=== PATIENT | male | born 1950 | race Caucasian/White ===

== ENCOUNTER 2022-03-11 13:16 | Inpatient (IN) ==
--- NOTE | 2022-03-11 14:21 | Emergency Department Note ---
Impression & Plan Precordial chest pain, SOB (shortness of breath), Elevated troponin ED Provider Note NAME: HEIDI HEAD AGE: 72 SEX: M : 1950 ARRIVES VIA: Walk-In INFORMANT: [Patient] ED PROVIDER(S): [Theodore Montes De Oca MD] CHIEF COMPLAINT: Chest pain HISTORY OF PRESENT ILLNESS: The patient is a 72-year-old male who presents to the ER with complaints of 1 week of exertional chest pain. 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 He feels a bit short of breath and lately, he has been sweating. His last episode of discomfort lasted about 6 hours as he was working 6 hours. When he stops working, he feels better. In addition, in the last day or so he has noticed some shortness of breath at the top of his stairs. He is currently sitting on the stretcher without dyspnea and without chest pain. The patient does have hypertrophic cardiomyopathy, no diagnosed coronary disease. He has never had an MD. Because of his symptoms, because of the escalation of symptoms, he presents for evaluation. REVIEW OF SYSTEMS: See HPI for pertinent positives and negatives. A total of ten systems were reviewed and were otherwise negative. PMHx/PSHx: See Below SOCIAL HISTORY: See Below. PHYSICAL EXAM: GENERAL: Patient is in no acute distress. HEENT: No acute trauma, normocephalic atraumatic, mucous membranes moist, no nasal congestion, no scleral icterus. NECK: No stridor, no adenopathy, no meningismus, trachea is midline. LUNGS: Clear to auscultation bilaterally, no wheeze, no rhonchi, breath sounds equal. HEART: 2/6 systolic murmur, regular rate and rhythm. ABDOMEN: Soft, nontender, bowel sounds positive, no hernias, no peritonitis. EXTREMITIES: No cyanosis or edema, full range of motion of all the joints without pain or difficulty, no signs for acute trauma. NEUROLOGIC: Oriented x 3, no acute motor or sensory deficits, no focal weakness. SKIN: No rash, no jaundice, no diaphoresis. DIFFERENTIAL DIAGNOSIS: Cardiac ischemia, aortic dissection, pulmonary embolism, pneumothorax, pneumonia, pericarditis, myocarditis, esophageal rupture, GERD, cholecystitis, pancreatitis, musculoskeletal, as well as other pathologies. EMERGENCY DEPARTMENT COURSE/PROCEDURES: ECG: Indication was chest pain. The ECG shows a normal sinus rhythm with a rate of 74. There is some LVH present. There are subtle ST depression/T wave inversions in the anterior and lateral leads. There is no ST elevation. The QTc is 395. Compared to an ECG from 25 September 2019, the anterior lateral ST changes/T wave inversions are more pronounced. Continuous Cardiac Monitoring: An order was placed for continuous cardiac monitoring. The monitor shows a rate of 75 with normal sinus rhythm. MEDICAL DECISION MAKING: There is no leukocytosis or concerning anemia. There is a normal platelet count. No worrisome coagulopathy. No renal failure or significant electrolyte abnormality. Troponin was elevated at 809, consistent with potential cardiac injury or strain. ECG shows a sinus rhythm, no ST elevation, some nonspecific ST changes were seen. No evidence for pancreatitis. COVID testing returned negative. Chest film did not show CHF or pneumonia. On exam, the patient was without chest pain and without dyspnea, he was resting comfortably. The patient presents with chest discomfort that was exertional in nature. He does have an elevation to his troponin. I did speak with cardiology. Hospitali zation is warranted. I spoke with the patient about his findings, I spoke with case management, the on-call hospitalist was consulted. Past Med/Surg History Medical History Chronic ulcerative colitis Dyslipidemia Heart murmur History of chemotherapy 5FU topical ointment to the penis Hypertension Hypertrophic cardiomyopathy Penile cancer Sleep apnea Surgical History (Updated 08/12/21 @ 08:30 by Alea Ross RN) History of Achilles tendon repair (10/1995) Left Dr. Kiser History of biopsy (11/29/19) Urethra Dr. Shasta Fenton History of biopsy of temporal artery (10/15/10) Left Temporal Artery History of cataract surgery (01/2011) Bilateral History of colonoscopy (01/07/13) Dr. Rosalba Varela History of colonoscopy (08/17/17) Dr. Rosalba Varela History of colonoscopy (03/09/15) Dr. Rosalba Varela History of colonoscopy (08/21/19) Dr. Rosalba Varela History of colonoscopy (01/2002) Dr. Romeo History of colonoscopy (04/24/07) Dr. Romeo History of colonoscopy (06/24/10) Dr. Romeo History of hernia repair History of prostate biopsy (07/14/21) History of repair of rotator cuff (07/15/10) Right Dr. Kiser History of umbilical hernia repair (01/2008) Dr. Bush S/P arthroscopic surgery of left knee (2003) Family History (Updated 08/12/21 @ 08:33 by Alea Ross RN) Grandfather (Maternal) , Passed Age 72 Lung cancer Father , Passed Age 65 No problems noted. Mother , Passed Age 80 Uterine cancer Brother No problems noted. Brother No problems noted. Sister No problems noted. Daughter No problems noted. Daughter No problems noted. Daughter No problems noted. 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 [id number] How many Children do You have: 3 Feels Safe at Home: Yes Childhood Exposure to Second-Hand Smoke: No Diet Comment: is Vegan caffeine: Yes (1 cup of coffee per day) during the past year weight has: remained stable Dental Care, Regularly: Yes Assistive Devices: CPAP Allergies Allergies Allergy/AdvReac Type Severity Reaction Status Date / Time No Known Allergies Allergy Verified 03/11/22 15:10 Home Meds Home Medications Medication Instructions Recorded Confirmed losartan 50 mg-hydrochlorothiazide 1 tab PO DAILY 09/25/19 03/11/22 12.5 mg tablet (Hyzaar) mercaptopurine 50 mg tablet 50 mg PO DAILY 09/25/19 03/11/22 pravastatin 10 mg tablet 10 mg PO DAILY 09/25/19 03/11/22 apixaban 5 mg tablet (Eliquis) 5 mg PO BID 08/12/21 03/11/22 metoprolol succinate 100 mg 100 mg PO DAILY 08/12/21 03/11/22 tablet,extended release 24 hr ascorbic acid (vitamin C) 500 mg 500 mg PO DAILY 10/11/21 03/11/22 tablet aspirin 81 mg capsule 81 mg PO DAILY 10/11/21 03/11/22 cholecalciferol (vitamin D3) 50 50 mcg PO DAILY 10/11/21 03/11/22 mcg (2,000 unit) capsule mesalamine 800 mg tablet,delayed 800 mg PO TID 03/11/22 03/11/22 release Previous Rx's Medication Instructions Recorded tamsulosin 0.4 mg capsule 0.4 mg PO BIDWMEAL #60 cap 03/03/22 Results & Data (ED) Vital Signs Vital Signs - 24 hr 03/11/22 13:22 03/11/22 14:16 03/11/22 14:18 Temperature 36.8 C Temperature Source Temporal Artery Scan Pulse Rate 83 75 Pulse Rate [Apical] Pulse Rhythm Regular Respiratory Rate 18 Blood Pressure 100/64 Blood Pressure [Left Arm] Blood Pressure Mean 76 Blood Pressure Mean [Left Arm] Blood Pressure Position Sitting Pulse Oximetry 96 98 Oxygen Delivery Method Room Air Room Air Room Air Sepsis Recent Fever Within 48 Hours No Sepsis New/Unexplained Change in Mental Status No Sepsis Action Taken by Nursing No Action Required 03/11/22 15:05 Temperature Temperature Source Pulse Rate Pulse Rate [Apical] 61 Pulse Rhythm Respiratory Rate 19 Blood Pressure Blood Pressure [Left Arm] 106/70 Blood Pressure Mean Blood Pressure Mean [Left Arm] 82 Blood Pressure Position Pulse Oximetry 97 Oxygen Delivery Method Room Air Sepsis Recent Fever Within 48 Hours Sepsis New/Unexplained Change in Mental Status Sepsis Action Taken by Halfway Medications Current Medication List: was personally reviewed by me Laboratory Data Attestation: I reviewed the patient's lab results. Result diagrams: 03/11/22 14:32 03/11/22 14:32 Lab Results 03/11/22 03/11/22 03/11/22 Range/Units 14:32 14:32 14:32 WBC 7.59 (4.8-10.8) K/uL RBC 4.25 L (4.7-6.1) M/uL Hgb 15.2 (14.0-18.0) g/dL Hct 43.7 (42-52) % MCV 102.8 H (80-100) fL MCH 35.8 H (25-34) pg MCHC 34.8 (32-36) g/dL RDW Std Deviation 56.5 H (36.4-46.3) fL RDW Coeff of Anirudh 15.0 H (11.5-14.5) % Plt Count 175 (130-400) K/uL MPV 9.2 (7.4-10.4) fL Immature Gran % (Auto) 0.3 % Neut % (Auto) 80.2 % Lymph % (Auto) 9.9 % Harper % (Auto) 7.9 % Eos % (Auto) 1.6 % Baso % (Auto) 0.1 % Neut # (Auto) 6.09 (1.4-6.5) K/uL Lymph # (Auto) 0.75 L (1.2-3.4) K/uL Harper # (Auto) 0.60 H (0.11-0.59) K/uL Eos # (Auto) 0.12 (0-0.5) K/uL Baso # (Auto) 0.01 (0-0.2) K/uL Immature Gran # (Auto) 0.02 (0.00-0.02) K/uL PT 11.5 (9.0-12.0) Seconds INR 1.1 (0.9-1.1) APTT 35.3 H (21.0-31.0) Seconds PTT Ratio 1.3 Sodium 134 L (136-145) mmol/L Potassium 3.6 (3.5-5.1) mmol/L Chloride 103 (98-107) mmol/L Carbon Dioxide 24 (21-32) mmol/L Anion Gap 7 (3-11) BUN 21 (6-23) mg/dl Creatinine 1.23 (0.6-1.4) mg/dl Est Cr Clr Drug Dosing 60.8 ml/min Est GFR ( Amer) 67.1 ml/min Est GFR (Non-Af Amer) 57.9 ml/min BUN/Creatinine Ratio 17.1 (10-20) Glucose 94 (70-99(Fasting)) mg/dl Calcium 9.3 (8.5-10.1) mg/dl Magnesium 2.1 (1.7-2.4) mg/dl Total Bilirubin 0.9 (0.2-1.0) mg/dl AST 24 (13-39) U/L ALT 22 (7-52) U/L Alkaline Phosphatase 86 (34-104) U/L Troponin I High Sens 809.5 H* (0-20) pg/ml Total Protein 6.4 (6.0-8.3) gm/dl Albumin 4.1 (3.4-5.0) gm/dl Globulin 2.3 L (2.5-4.0) gm/dl Albumin/Globulin Ratio 1.8 (0.9-2) Lipase 30 (11-82) U/L SARS-CoV-2, RNA, NAAT (NEGATIVE) 03/11/22 Range/Units 15:00 WBC (4.8-10.8) K/uL RBC (4.7-6.1) M/uL Hgb (14.0-18.0) g/dL Hct (42-52) % MCV (80-100) fL MCH (25-34) pg MCHC (32-36) g/dL RDW Std Deviation (36.4-46.3) fL RDW Coeff of Anirudh (11.5-14.5) % Plt Count (130-400) K/uL MPV (7.4-10.4) fL Immature Gran % (Auto) % Neut % (Auto) % Lymph % (Auto) % Harper % (Auto) % Eos % (Auto) % Baso % (Auto) % Neut # (Auto) (1.4-6.5) K/uL Lymph # (Auto) (1.2-3.4) K/uL Harper # (Auto) (0.11-0.59) K/uL Eos # (Auto) (0-0.5) K/uL Baso # (Auto) (0-0.2) K/uL Immature Gran # (Auto) (0.00-0.02) K/uL PT (9.0-12.0) Seconds INR (0.9-1.1) APTT (21.0-31.0) Seconds PTT Ratio Sodium (136-145) mmol/L Potassium (3.5-5.1) mmol/L Chloride (98-107) mmol/L Carbon Dioxide (21-32) mmol/L Anion Gap (3-11) BUN (6-23) mg/dl Creatinine (0.6-1.4) mg/dl Est Cr Clr Drug Dosing ml/min Est GFR ( Amer) ml/min Est GFR (Non-Af Amer) ml/min BUN/Creatinine Ratio (10-20) Glucose (70-99(Fasting)) mg/dl Calcium (8.5-10.1) mg/dl Magnesium (1.7-2.4) mg/dl Total Bilirubin (0.2-1.0) mg/dl AST (13-39) U/L ALT (7-52) U/L Alkaline Phosphatase (34-104) U/L Troponin I High Sens (0-20) pg/ml Total Protein (6.0-8.3) gm/dl Albumin (3.4-5.0) gm/dl Globulin (2.5-4.0) gm/dl Albumin/Globulin Ratio (0.9-2) Lipase (11-82) U/L SARS-CoV-2, RNA, NAAT NEGATIVE (NEGATIVE) Imaging Data Radiologist's Impression: Chest X-Ray 03/11/22 14:16 XR chest 1V portable CLINICAL HISTORY: Atypical chest pain TECHNIQUE: Single frontal radiograph of the chest was obtained. Comparison: Comparison is made to chest one view 09/25/2019 FINDINGS: No lines and tubes are seen. The cardiomediastinal silhouette is normal. The lungs are clear. No evidence of pleural effusion or pneumothorax. IMPRESSION: No acute chest disease. ACT 112: Negative or not required by law. Electronically signed by: Suresh Parmar M.D. 03/11/2022 2:42 PM Discharge Plan Visit Data Chief Complaint: Cardiac Assessment Stated Complaint: TIGHTNESS IN CHEST ON EXCERTION, SOB ED Provider: Theodore Montes De Oca Discharge Problem: Precordial chest pain, SOB (shortness of breath), Elevated troponin Patient Disposition: Admitted As Inpatient Condition: Fair Forms Stand Alone Forms: My [facility] Prescriptions Prescriptions: No Action tamsulosin 0.4 mg capsule 0.4 mg PO BIDWMEAL Qty: 60 RF: 5 Eliquis 5 mg tablet 5 mg PO BID RF: 0 metoprolol succinate 100 mg tablet extended release 24 hr 100 mg PO DAILY RF: 0 aspirin 81 mg capsule 81 mg PO DAILY RF: 0 ascorbic acid (vitamin C) 500 mg tablet 500 mg PO DAILY RF: 0 cholecalciferol (vitamin D3) 50 mcg (2,000 unit) capsule 50 mcg PO DAILY RF: 0 pravastatin 10 mg tablet 10 mg PO DAILY RF: 0 mercaptopurine 50 mg tablet 50 mg PO DAILY RF: 0 losartan-hydrochlorothiazide [Hyzaar] 50-12.5 mg tablet 1 tab PO DAILY RF: 0 mesalamine 800 mg tablet,delayed release (DR/EC) 800 mg PO TID RF: 0 Referrals Referrals: Kojo Brown MD [Outside Practitioners] -
[2022-03-11 14:43] LABS: Basophils # (auto) 0.01 K/uL (0-0.2); Basophils % (auto) 0.1 %; Eosinophils # (auto) 0.12 K/uL (0-0.5); Eosinophils % (auto) 1.6 %; Hematocrit (blood only) 43.7 % (42-52); Hemoglobin 15.2 g/dL (14.0-18.0); Immature Granulocytes # (auto) 0.02 K/uL (0.00-0.02); Immature Granulocytes % (auto) 0.3 %; Lymphocytes # (auto) 0.75 K/uL (1.2-3.4); Lymphocytes % (auto) 9.9 %; Mean Corpuscular Hemoglobin 35.8 pg (25-34); Mean Corpuscular Hgb Conc 34.8 g/dL (32-36); Mean Corpuscular Volume 102.8 fL (80-100); Mean Platelet Volume 9.2 fL (7.4-10.4); Monocytes % (auto) 7.9 %; Neutrophils # (auto) 6.09 K/uL (1.4-6.5); Neutrophils % (auto) 80.2 %; Platelet Count 175 K/uL (130-400); RDW Standard Deviation 56.5 fL (36.4-46.3); Red Blood Count 4.25 M/uL (4.7-6.1); White Blood Count 7.59 K/uL (4.8-10.8)
--- NOTE | 2022-03-11 14:44 | XRay Report ---
XR chest 1V portable CLINICAL HISTORY: Atypical chest pain TECHNIQUE: Single frontal radiograph of the chest was obtained. Comparison: Comparison is made to chest one view 09/25/2019 FINDINGS: No lines and tubes are seen. The cardiomediastinal silhouette is normal. The lungs are clear. No evid ence of pleural effusion or pneumothorax. IMPRESSION: No acute chest disease. ACT 112: Negative or not required by law. Electronically signed by: Suresh Parmar M.D. 03/11/2022 2:42 PM
[2022-03-11 14:53] LABS: INR 1.1 (0.9-1.1); Partial Thromboplastin Ratio 1.3; Partial Thromboplastin Time 35.3 Seconds (21.0-31.0); Prothrombin Time 11.5 Seconds (9.0-12.0)
[2022-03-11 15:05] LABS: Albumin Globulin Ratio 1.8 (0.9-2); Albumin Level 4.1 gm/dl (3.4-5.0); BUN Creatinine Ratio 17.1 (10-20); Bilirubin,Total 0.9 mg/dl (0.2-1.0); Calcium 9.3 mg/dl (8.5-10.1); Creatinine Clr Calc Pharmacy 60.8 ml/min; Est GFR (African American) 67.1 ml/min; Est GFR (Non-African American) 57.9 ml/min; Globulin 2.3 gm/dl (2.5-4.0); Magnesium 2.1 mg/dl (1.7-2.4); Potassium 3.6 mmol/L (3.5-5.1); Total Protein 6.4 gm/dl (6.0-8.3)
[2022-03-11 15:36] LABS: Troponin I High Sensitivity 809.5 pg/ml (0-20)
--- NOTE | 2022-03-11 16:28 | History & Physical Report ---
Date of Service March 11, 2022 Assessment & Plan (1) Precordial chest pain: Plan: Exertional chest discomfort, relieved by rest - worsening over the past 1-2 weeks. History of HOCM with latent inducible LVOT obstruction, paroxysmal atrial fibrillation on chronic AC. Denies prior hx of CAD. - Admit to PCU - Serial troponin, repeat EKG in AM - Check ECHO - Consult cardiology - will make pt NPO at midnight in case procedure needed tomorrow - Spoke with Dr. Del Rosario - will hold Eliquis and start heparin gtt, standard dose, no bolus (2) Elevated troponin: Plan: See plan for #1 (3) Hypertrophic cardiomyopathy: (4) Paroxysmal atrial fibrillation: (5) Sleep apnea: Plan: Continue CPAP (6) Hypertension: (7) Chronic anticoagulation: Plan: Continue other home medications as appropriate Pt seen and reviewed with collaborating physician, Dr. Walls. Plan of care discussed and as outlined above. Code status: Full code DVT Prophylaxis: on a heparin gtt Evan Ruiz PA-C History of Present Illness Chief Complaint: chest discomfort Primary Care Provider: Edson Sheldon DO This is a 72 y/o male with a PMH of HOCM with latent inducible LVOT obstruction, paroxysmal atrial fibrillation on chronic anticoagulation, HTN, hyperlipidemia, UC, sleep apnea on CPAP, prior squamous cell carcinoma of the penis, and recent prostate cancer s/p XRT who was referred to the ED today by his PCP due to increasing episodes of chest discomfort with exertion. 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 Starting last week, pt developed chest tightness with this exertion that resolved with rest. This week, the pt has noticed tightness and discomfort of increased intensity in the substernal area with associated racing heart. Yesterday's episode had associated SOB and mild diaphoresis and lasted around six hours so he contacted his professor of mathematics today and was referred to the ED for additional evaluation. He reports that the episode today lasted around three hours but he is currently pain-free. This week he has also noticed POND with climbing stairs, which is new. Yesterday, he had some posterior neck discomfort associated with the episode. In the ED, his troponin was elevated and his EKG appeared changed from prior though no areas of ST segment elevation upon initial presentation. The ED provider spoke with cardiology who recommended pt be admitted for further evaluation. Allergies Allergy/AdvReac Type Severity Reaction Status Date / Time No Known Allergies Allergy Verified 03/11/22 15:10 Home Medications Medication Instructions Recorded Confirmed Type losartan 50 mg-hydrochlorothiazide 1 tab PO DAILY 09/25/19 03/11/22 History 12.5 mg tablet (Hyzaar) mercaptopurine 50 mg tablet 50 mg PO DAILY 09/25/19 03/11/22 History pravastatin 10 mg tablet 10 mg PO DAILY 09/25/19 03/11/22 History apixaban 5 mg tablet (Eliquis) 5 mg PO BID 08/12/21 03/11/22 History metoprolol succinate 100 mg 100 mg PO DAILY 08/12/21 03/11/22 History tablet,extended release 24 hr ascorbic acid (vitamin C) 500 mg 500 mg PO DAILY 10/11/21 03/11/22 History tablet aspirin 81 mg capsule 81 mg PO DAILY 10/11/21 03/11/22 History cholecalciferol (vitamin D3) 50 50 mcg PO DAILY 10/11/21 03/11/22 History mcg (2,000 unit) capsule tamsulosin 0.4 mg capsule 0.4 mg PO BIDWMEAL #60 cap 03/03/22 03/11/22 Rx mesalamine 800 mg tablet,delayed 800 mg PO TID 03/11/22 03/11/22 History release verapamil 120 mg tablet,extended 60 mg PO DAILY 03/11/22 03/11/22 History release Past Med/Surg History Medical History Chronic ulcerative colitis Dyslipidemia Heart murmur History of chemotherapy 5FU topical ointment to the penis Hypertension Hypertrophic cardiomyopathy Paroxysmal atrial fibrillation Penile cancer Prostate cancer Sleep apnea Surgical History History of Achilles tendon repair (10/1995) Left Dr. Kiser History of biopsy (11/29/19) Urethra Dr. Shasta Fenton History of biopsy of temporal artery (10/15/10) Left Temporal Artery History of cataract surgery (01/2011) Bilateral History of colonoscopy (01/07/13) Dr. Rosalba Varela History of colonoscopy (08/17/17) Dr. Rosalba Varela History of colonoscopy (03/09/15) Dr. Rosalba Varela History of colonoscopy (08/21/19) Dr. Rosalba Varela History of colonoscopy (01/2002) Dr. Romeo History of colonoscopy (04/24/07) Dr. Romeo History of colonoscopy (06/24/10) Dr. Romeo History of hernia repair History of prostate biopsy (07/14/21) History of repair of rotator cuff (07/15/10) Right Dr. Kiser History of umbilical hernia repair (01/2008) Dr. Bush S/P arthroscopic surgery of left knee (2003) Family History Grandfather (Maternal) , Passed Age 72 Lung cancer Father , Passed Age 65 No problems noted. Mother , Passed Age 80 Uterine cancer Brother No problems noted. Brother No problems noted. Sister No problems noted. Daughter No problems noted. Daughter No problems noted. Daughter No problems noted. 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 [employer] How many Children do You have: 3 Other Information That Helps Us Care for You: No Feels Safe at Home: Yes Safety Concerns: Feels Safe At This Time Childhood Exposure to Second-Hand Smoke: No Diet Comment: is Vegan caffeine: Yes (1 cup of coffee per day) during the past year weight has: remained stable Dental Care, Regularly: Yes Assistive Devices: CPAP Assistive Devices Comment: home CPAP Review of Systems Review of Systems: All systems reviewed & are unremarkable except as noted in HPI & below Constitutional: + fatigue; no fever and no chills Eyes: no diplopia Ear, Nose, Mouth, Throat: no nasal congestion, no nasal discharge and no sore throat Respiratory: no cough, no chest congestion and no wheezing Cardiovascular: as per Subjective / HPI, + dyspnea on exertion and + lightheadedness (occasional mild); no syncope and no edema Gastrointestinal: no abdominal pain, no heartburn, no nausea, no vomiting and no diarrhea/loose stools Genitourinary: + urinary frequency (since XRT) and + nocturia (baseline 3x/night); no dysuria or no hematuria Musculoskeletal: no back pain and no joint pain Integumentary: no yellowing of the skin Neurologic: no seizure-like activity, no syncope and no headache(s) Psychiatric: no depression and no anxiety Physical Exam Constitutional: well developed and well nourished; no acute distress Eyes: + anicteric sclerae Neck: trachea midline Respiratory: no respiratory distress and no labored breathing Auscultation: lungs clear to auscultation bilaterally; no rales, no rhonchi and no wheezes Cardiovascular: Rate/Rhythm: regular rate and regular rhythm Vessels: posterior tibial pulses present and radial pulses present; no carotid bruit Extremities: no edema no chest wall tenderness Gastrointestinal (Abdomen): Inspection/Auscultation: normal bowel sounds; abdomen not distended Percussion/Palpation: abdomen soft; abdomen nontender Musculoskeletal: Head/Neck/Chest: normocephalic, head atraumatic and neck supple Skin: no jaundice Neurologic: moves all extremities; no focal motor deficits and not confused Psychiatric: A+Ox3, euthymic affect Results & Data Results & Data ([facility]) Vital Signs (Past 12 Hours) Vital Signs Temp Pulse Pulse Resp BP BP Pulse Ox 03/11/22 15:05 61 19 106/70 97 03/11/22 14:18 75 98 03/11/22 13:22 36.8 C 83 18 100/64 96 Laboratory Results Laboratory Results - last 24 hr 03/11/22 03/11/22 03/11/22 14:32 14:32 14:32 WBC 7.59 RBC 4.25 L Hgb 15.2 Hct 43.7 MCV 102.8 H MCH 35.8 H MCHC 34.8 RDW Std Deviation 56.5 H RDW Coeff of Anirudh 15.0 H Plt Count 175 MPV 9.2 Immature Gran % (Auto) 0.3 Neut % (Auto) 80.2 Lymph % (Auto) 9.9 [place] % (Auto) 7.9 Eos % (Auto) 1.6 Baso % (Auto) 0.1 Neut # (Auto) 6.09 Lymph # (Auto) 0.75 L [place] # (Auto) 0.60 H Eos # (Auto) 0.12 Baso # (Auto) 0.01 Immature Gran # (Auto) 0.02 PT 11.5 INR 1.1 APTT 35.3 H PTT Ratio 1.3 Sodium 134 L Potassium 3.6 Chloride 103 Carbon Dioxide 24 Anion Gap 7 BUN 21 Creatinine 1.23 Est Cr Clr Drug Dosing 60.8 Est GFR ( Amer) 67.1 Est GFR (Non-Af Amer) 57.9 BUN/Creatinine Ratio 17.1 Glucose 94 Calcium 9.3 Magnesium 2.1 Total Bilirubin 0.9 AST 24 ALT 22 Alkaline Phosphatase 86 Troponin I High Sens 809.5 H* Total Protein 6.4 Albumin 4.1 Globulin 2.3 L Albumin/Globulin Ratio 1.8 Lipase 30 SARS-CoV-2, RNA, NAAT 03/11/22 15:00 WBC RBC Hgb Hct MCV MCH MCHC RDW Std Deviation RDW Coeff of Anirudh Plt Count MPV Immature Gran % (Auto) Neut % (Auto) Lymph % (Auto) [place] % (Auto) Eos % (Auto) Baso % (Auto) Neut # (Auto) Lymph # (Auto) [place] # (Auto) Eos # (Auto) Baso # (Auto) Immature Gran # (Auto) PT INR APTT PTT Ratio Sodium Potassium Chloride Carbon Dioxide Anion Gap BUN Creatinine Est Cr Clr Drug Dosing Est GFR ( Amer) Est GFR (Non-Af Amer) BUN/Creatinine Ratio Glucose Calcium Magnesium Total Bilirubin AST ALT Alkaline Phosphatase Troponin I High Sens Total Protein Albumin Globulin Albumin/Globulin Ratio Lipase SARS-CoV-2, RNA, NAAT NEGATIVE Diagnostic Findings Chest X-ray 03/11/22 - IMPRESSION: No acute chest disease. Medications Administered None in ED Supervising Physician Co-Signing Physician Notes Patient is a 72-year-old male with history of paroxysmal A. fib on chronic anticoagulation with Eliquis, HOCM, hyperlipidemia, hypertension, sleep apnea and other medical problems presents with history of episodic chest pain on exertion which has been gradually worsening since 2 weeks duration. Patient describes chest pain as tightness which is associated with diaphoresis, palpitations and shortness of breath. Symptoms relieved with rest. Please review HPI for complete details of presentation. Blood work showed hemoglobin 15.2, MCV 102, platelets 175K, sodium 134, troponin 809. Chest x-ray showed no acute disease EKG showed normal sinus rhythm, nonspecific T wave changes in anterior, lateral and inferior leads. On exam patient is obese, no apparent distress, normocephalic atraumatic, EOMI, normal breath sounds, clear to auscultation, S1-S2,? Murmur, no pedal edema, abdomen soft, nontender, normal bowel sounds, alert, awake, oriented, grossly no focal deficits. Patient is admitted for management of Chest Pain R/O ACS. Likely NSTEMI. Started on IV heparin. Discussed with professor of mathematics on-call. Hold Eliquis. Continue aspirin, statin, metoprolol. Check lipid panel, A1c, resting echo. We will repeat EKG in the morning. N.p.o. after midnight for possible cardiac catheterization. I personally reviewed the record. Patient is interviewed and examined at bedside. Patient's care is coordinated with Vickie Ruiz PA-C. Please refer to the documentation above for details of patient's presentation and for discussion of other issues.
[2022-03-11] MEDS ORDERED: Heparin IV Adult Wt-Based Standard *NO* Bolus Protocol ONE (17:45)
[2022-03-11] MEDS: HEPARIN SODIUM/DEXTROSE 25,000 UNITS/500 ML BAG IV SCH (18:05)
[2022-03-11] MEDS ORDERED: NITROGLYCERIN SL 0.4 MG/TAB TAB SL PRN (19:17)
[2022-03-11] MEDS ORDERED: ACETAMINOPHEN 325 MG TAB PO PRN (19:17)
[2022-03-11] MEDS: TAMSULOSIN HCL 0.4 MG CAP PO SCH (20:30)
[2022-03-11] MEDS: MESALAMINE 800 MG TABCR PO SCH (22:13)
--- NOTE | 2022-03-11 22:15 | Electrocardiogram Report ---
Test Reason : Blood Pressure : / mmHG Vent. Rate : 074 BPM Atrial Rate : 074 BPM P-R Int : 194 ms QRS Dur : 080 ms QT Int : 356 ms P-R-T Axes : 049 002 -20 degrees QTc Int : 395 ms Normal sinus rhythm Possible Left atrial enlargement Left ventricular hypertrophy with repolarization abnormality Abnormal ECG When compared with ECG of 25-SEP-2019 18:44, Non-specific change in ST segment in Anterior leads Nonspecific T wave abnormality now evident in Inferior leads Nonspecific T wave abnormality now evident in Anterior leads Nonspecific T wave abnormality, improved in Lateral leads Confirmed by Jamie Dunn ([id number]) on 03/11/2022 10:15:02 PM Referred By: REFERRED SELF Confirmed By:Jamie Dunn
[2022-03-12 00:58] LABS: Partial Thromboplastin Ratio 2.9
[2022-03-12 01:03] LABS: Partial Thromboplastin Time 80.9 Seconds (21.0-31.0)
[2022-03-12 06:02] LABS: Hematocrit (blood only) 42.3 % (42-52); Hemoglobin 14.7 g/dL (14.0-18.0); Mean Corpuscular Hemoglobin 35.3 pg (25-34); Mean Corpuscular Hgb Conc 34.8 g/dL (32-36); Mean Corpuscular Volume 101.7 fL (80-100); Mean Platelet Volume 9.3 fL (7.4-10.4); Platelet Count 140 K/uL (130-400); RDW Coefficient of Variation 15.1 % (11.5-14.5); RDW Standard Deviation 55.2 fL (36.4-46.3); Red Blood Count 4.16 M/uL (4.7-6.1); White Blood Count 4.63 K/uL (4.8-10.8)
[2022-03-12 07:22] LABS: BUN Creatinine Ratio 18.1 (10-20); Calcium 8.7 mg/dl (8.5-10.1); Est GFR (African American) 81.2 ml/min; Est GFR (Non-African American) 70.1 ml/min; Potassium 3.6 mmol/L (3.5-5.1); Troponin I High Sensitivity 1126.4 pg/ml (0-20)
[2022-03-12 07:58] LABS: Partial Thromboplastin Ratio 3.5
[2022-03-12 08:02] LABS: Partial Thromboplastin Time 95.8 Seconds (21.0-31.0)
[2022-03-12] MEDS: MERCAPTOPURINE 50 MG TAB PO SCH (08:06)
[2022-03-12] MEDS: MESALAMINE 800 MG TABCR PO SCH ×3 (08:07→20:26)
[2022-03-12] MEDS: TAMSULOSIN HCL 0.4 MG CAP PO SCH ×2 (08:07→17:18)
[2022-03-12] MEDS: VERAPAMIL HCL 120 MG TABCR PO SCH (08:08)
[2022-03-12] MEDS: PRAVASTATIN SOD 10 MG TAB PO SCH (08:08)
[2022-03-12] MEDS: ASPIRIN 81 MG ECTAB PO SCH (08:08)
[2022-03-12] MEDS: LOSARTAN/HCTZ 50/12.5MG TAB PO SCH (08:08)
[2022-03-12] MEDS: METOPROLOL SUCC 50MG EXT REL TAB PO SCH (08:08)
[2022-03-12 09:41] LABS: Estimated Average Glucose 114 mg/dl; Hemoglobin A1C 5.6 % (4.5-5.6)
[2022-03-12] MEDS: HEPARIN SODIUM/DEXTROSE 25,000 UNITS/500 ML BAG IV SCH (12:50)
--- NOTE | 2022-03-12 14:15 | Cardiology Consultation ---
Date of Consultation March 12, 2022 Assessment & Plan (1) Crescendo angina: (2) Elevated troponin: (3) Hypertrophic cardiomyopathy: (4) Hypertension: (5) Sleep apnea: (6) Paroxysmal atrial fibrillation: Patient is a 72-year-old male with known hypertrophic cardiomyopathy but no prior history of ischemic heart disease who presents with signs and symptoms of crescendo angina/non-ST segment elevation myocardial infarction. Hemodynamically stable since admission and no current symptoms. Echocardiogram reflective of apical wall motion abnormality consistent with EKG 5 Recommendations: Continue anticoagulation with IV heparin, holding apixaban Continue metoprolol and verapamil Schedule diagnostic coronary angiography Monday unless patient becomes unstable History of Present Illness Attending Physician: Jacob Guadalupe MD History of Present Illness Patient is a 72-year-old male ongoing cardiac issues which include 1.Hypertrophic cardiomyopathy 2.Hypertension. 3.Ulcerative colitis. 4.Central sleep apnea. 5.Paroxysmal atrial fibrillation on chronic anticoagulation Patient presents this admission with signs and symptoms of crescendo angina greater than 1 weeks duration. He has noted exertional chest pressure with associated shortness of breath and intermittent diaphoresis at increasingly more frequent and lower levels of exertion over the past week. Ultimately presented in the emergency room with troponins of been elevated. He has been asymptomatic since hospital admission currently appropriately anticoagulated with IV heparin, Eliquis on hold No arrhythmias on telemetry. No rest symptoms per patient no fevers chills or unexplained infections. No current bleeding issues. No acute weight loss or gain. Has been taking medications as prescribed Allergies Allergy/AdvReac Type Severity Reaction Status Date / Time No Known Allergies Allergy Verified 03/11/22 15:10 Home Medications Medication Instructions Recorded Confirmed Type losartan 50 mg-hydrochlorothiazide 1 tab PO DAILY 09/25/19 03/11/22 History 12.5 mg tablet (Hyzaar) mercaptopurine 50 mg tablet 50 mg PO DAILY 09/25/19 03/11/22 History pravastatin 10 mg tablet 10 mg PO DAILY 09/25/19 03/11/22 History apixaban 5 mg tablet (Eliquis) 5 mg PO BID 08/12/21 03/11/22 History metoprolol succinate 100 mg 100 mg PO DAILY 08/12/21 03/11/22 History tablet,extended release 24 hr ascorbic acid (vitamin C) 500 mg 500 mg PO DAILY 10/11/21 03/11/22 History tablet aspirin 81 mg capsule 81 mg PO DAILY 10/11/21 03/11/22 History cholecalciferol (vitamin D3) 50 50 mcg PO DAILY 10/11/21 03/11/22 History mcg (2,000 unit) capsule tamsulosin 0.4 mg capsule 0.4 mg PO BIDWMEAL #60 cap 03/03/22 03/11/22 Rx mesalamine 800 mg tablet,delayed 800 mg PO TID 03/11/22 03/11/22 History release verapamil 120 mg tablet,extended 60 mg PO DAILY 03/11/22 03/11/22 History release Patient History Medical History Chronic ulcerative colitis Dyslipidemia Heart murmur History of chemotherapy 5FU topical ointment to the penis Hypertension Hypertrophic cardiomyopathy Paroxysmal atrial fibrillation Penile cancer Prostate cancer Sleep apnea Surgical History History of Achilles tendon repair (10/1995) Left Dr. Kiser History of biopsy (11/29/19) Urethra Dr. Shasta Fenton History of biopsy of temporal artery (10/15/10) Left Temporal Artery History of cataract surgery (01/2011) Bilateral History of colonoscopy (01/07/13) Dr. Rosalba Varela History of colonoscopy (08/17/17) Dr. Rosalba Varela History of colonoscopy (03/09/15) Dr. Rosalba Varela History of colonoscopy (08/21/19) Dr. Rosalba Varela History of colonoscopy (01/2002) Dr. Romeo History of colonoscopy (04/24/07) Dr. Romeo History of colonoscopy (06/24/10) Dr. Romeo History of hernia repair History of prostate biopsy (07/14/21) History of repair of rotator cuff (07/15/10) Right Dr. Kiser History of umbilical hernia repair (01/2008) Dr. Bush S/P arthroscopic surgery of left knee (2003) Family History Grandfather (Maternal) , Passed Age 72 Lung cancer Father , Passed Age 65 No problems noted. Mother , Passed Age 80 Uterine cancer Brother No problems noted. Brother No problems noted. Sister No problems noted. Daughter No problems noted. Daughter No problems noted. Daughter No problems noted. 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 [employer] How many Children do You have: 3 Other Information That Helps Us Care for You: No Feels Safe at Home: Yes Safety Concerns: Feels Safe At This Time Childhood Exposure to Second-Hand Smoke: No Diet Comment: is Vegan caffeine: Yes (1 cup of coffee per day) during the past year weight has: remained stable Dental Care, Regularly: Yes Assistive Devices: CPAP Assistive Devices Comment: home CPAP Review of Systems Review of Systems: All systems reviewed & are unremarkable except as noted in HPI & below Physical Exam Constitutional: WD/WN, vitals as above Eyes: PERRL, conjunctivae normal, anicteric sclerae ENMT: external ear and nose normal, oropharynx normal Neck: trachea midline, no thyromegaly Respiratory: normal respiratory effort, lungs clear to auscultation Cardiovascular: Rate/Rhythm: regular rate and regular rhythm Heart Sounds: normal S1, normal S2 and + murmur (Grade 1/6 systolic murmur); no gallop Palpation: normal PMI Vessels: normal carotid upstroke and radial pulses present; no JVD and no carotid bruit Extremities: no edema Gastrointestinal (Abdomen): normal bowel sounds, soft, nontender, no hepatosplenomegaly Musculoskeletal: no cyanosis or clubbing, extremities motor strength 5/5 Skin: no rashes, warm and dry Neurologic: PERRL, EOMI, accommodation nl, no face palsy, no dysarthria Psychiatric: A+Ox3, euthymic affect Results & Data ([facility]) Vital Signs (Past 12 Hours) Vital Signs Temp Pulse Pulse Pulse Pulse Resp BP 03/12/22 12:00 36.6 C 58 L 18 125/70 03/12/22 08:00 65 03/12/22 07:35 36.7 C 64 20 132/80 03/12/22 02:54 36.5 C 82 16 130/76 Pulse Ox 03/12/22 12:00 97 03/12/22 08:00 03/12/22 07:35 97 03/12/22 02:54 95 Laboratory Results Laboratory Results - last 24 hr 03/11/22 03/11/22 03/11/22 14:32 14:32 14:32 WBC 7.59 RBC 4.25 L Hgb 15.2 Hct 43.7 MCV 102.8 H MCH 35.8 H MCHC 34.8 RDW Std Deviation 56.5 H RDW Coeff of Anirudh 15.0 H Plt Count 175 MPV 9.2 Immature Gran % (Auto) 0.3 Neut % (Auto) 80.2 Lymph % (Auto) 9.9 [place] % (Auto) 7.9 Eos % (Auto) 1.6 Baso % (Auto) 0.1 Neut # (Auto) 6.09 Lymph # (Auto) 0.75 L [place] # (Auto) 0.60 H Eos # (Auto) 0.12 Baso # (Auto) 0.01 Immature Gran # (Auto) 0.02 PT 11.5 INR 1.1 APTT 35.3 H PTT Ratio 1.3 Sodium 134 L Potassium 3.6 Chloride 103 Carbon Dioxide 24 Anion Gap 7 BUN 21 Creatinine 1.23 Est Cr Clr Drug Dosing 60.8 Est GFR ( Amer) 67.1 Est GFR (Non-Af Amer) 57.9 BUN/Creatinine Ratio 17.1 Glucose 94 Estimat Average Glucose Hemoglobin A1c Calcium 9.3 Magnesium 2.1 Total Bilirubin 0.9 AST 24 ALT 22 Alkaline Phosphatase 86 Troponin I High Sens 809.5 H* Total Protein 6.4 Albumin 4.1 Globulin 2.3 L Albumin/Globulin Ratio 1.8 Triglycerides Cholesterol LDL Cholesterol, Calc VLDL Cholesterol, Calc HDL Cholesterol Cholesterol/HDL Ratio Lipase 30 SARS-CoV-2, RNA, NAAT 03/11/22 03/11/22 03/12/22 15:00 22:46 00:19 WBC RBC Hgb Hct MCV MCH MCHC RDW Std Deviation RDW Coeff of Anirudh Plt Count MPV Immature Gran % (Auto) Neut % (Auto) Lymph % (Auto) [place] % (Auto) Eos % (Auto) Baso % (Auto) Neut # (Auto) Lymph # (Auto) [place] # (Auto) Eos # (Auto) Baso # (Auto) Immature Gran # (Auto) PT INR APTT 80.9 H* PTT Ratio 2.9 Sodium Potassium Chloride Carbon Dioxide Anion Gap BUN Creatinine Est Cr Clr Drug Dosing Est GFR ( Amer) Est GFR (Non-Af Amer) BUN/Creatinine Ratio Glucose Estimat Average Glucose Hemoglobin A1c Calcium Magnesium Total Bilirubin AST ALT Alkaline Phosphatase Troponin I High Sens 1497.3 H* D Total Protein Albumin Globulin Albumin/Globulin Ratio Triglycerides Cholesterol LDL Cholesterol, Calc VLDL Cholesterol, Calc HDL Cholesterol Cholesterol/HDL Ratio Lipase SARS-CoV-2, RNA, NAAT NEGATIVE 03/12/22 03/12/22 03/12/22 05:39 05:39 05:39 WBC 4.63 L RBC 4.16 L Hgb 14.7 Hct 42.3 MCV 101.7 H MCH 35.3 H MCHC 34.8 RDW Std Deviation 55.2 H RDW Coeff of Anirudh 15.1 H Plt Count 140 MPV 9.3 Immature Gran % (Auto) Neut % (Auto) Lymph % (Auto) [place] % (Auto) Eos % (Auto) Baso % (Auto) Neut # (Auto) Lymph # (Auto) [place] # (Auto) Eos # (Auto) Baso # (Auto) Immature Gran # (Auto) PT INR APTT PTT Ratio Sodium 135 L Potassium 3.6 Chloride 104 Carbon Dioxide 23 Anion Gap 8 BUN 19 Creatinine 1.05 Est Cr Clr Drug Dosing 70.0 Est GFR ( Amer) 81.2 Est GFR (Non-Af Amer) 70.1 BUN/Creatinine Ratio 18.1 Glucose 97 Estimat Average Glucose 114 Hemoglobin A1c 5.6 Calcium 8.7 Magnesium Total Bilirubin AST ALT Alkaline Phosphatase Troponin I High Sens 1126.4 H* D Total Protein Albumin Globulin Albumin/Globulin Ratio Triglycerides 93 Cholesterol 123 LDL Cholesterol, Calc 63 VLDL Cholesterol, Calc 19 HDL Cholesterol 41 Cholesterol/HDL Ratio 3.0 Lipase SARS-CoV-2, RNA, NAAT 03/12/22 03/12/22 07:25 10:13 WBC RBC Hgb Hct MCV MCH MCHC RDW Std Deviation RDW Coeff of Anirudh Plt Count MPV Immature Gran % (Auto) Neut % (Auto) Lymph % (Auto) [place] % (Auto) Eos % (Auto) Baso % (Auto) Neut # (Auto) Lymph # (Auto) [place] # (Auto) Eos # (Auto) Baso # (Auto) Immature Gran # (Auto) PT INR APTT 95.8 H* PTT Ratio 3.5 Sodium Potassium Chloride Carbon Dioxide Anion Gap BUN Creatinine Est Cr Clr Drug Dosing Est GFR ( Amer) Est GFR (Non-Af Amer) BUN/Creatinine Ratio Glucose Estimat Average Glucose Hemoglobin A1c Calcium Magnesium Total Bilirubin AST ALT Alkaline Phosphatase Troponin I High Sens 1013.9 H* Total Protein Albumin Globulin Albumin/Globulin Ratio Triglycerides Cholesterol LDL Cholesterol, Calc VLDL Cholesterol, Calc HDL Cholesterol Cholesterol/HDL Ratio Lipase SARS-CoV-2, RNA, NAAT
[2022-03-12 15:33] LABS: Partial Thromboplastin Ratio 1.9
[2022-03-12 15:37] LABS: Partial Thromboplastin Time 53.1 Seconds (21.0-31.0)
--- NOTE | 2022-03-12 16:36 | Hospitalist Progress Note ---
Date of Service March 12, 2022 Assessment & Plan (1) Precordial chest pain: Plan: per admitting C notes with addendum: Exertional chest discomfort, relieved by rest - worsening over the past 1-2 weeks. History of HOCM with latent inducible LVOT obstruction, paroxysmal atrial fibrillation on chronic AC. Denies prior hx of CAD. - Admit to PCU - Serial troponin, repeat EKG in AM - Check ECHO - Consult cardiology - will make pt NPO at midnight in case procedure needed tomorrow - Spoke with Dr. Del Rosario - will hold Eliquis and start heparin gtt, standard dose, no bolus 03/12 trop trending down continue Heparin IV for cardiac cath Monday (2) Elevated troponin: Plan: See plan for #1 (3) Hypertrophic cardiomyopathy: (4) Paroxysmal atrial fibrillation: (5) Sleep apnea: Plan: Continue CPAP (6) Hypertension: (7) Chronic anticoagulation: Plan: plan of care discussed with patient in detail and at length all questions answered he is understanding, agreeable, comfortable with the plan of care Admission and Anticipated Discharge Date Admission Date: March 11, 2022 Subjective ff up for chest pain etc seen resting in bed, comfortable no chest pain since admission no chest pain, dyspnea, palpitations, dizziness no bleeding no other symptoms Review of Systems Review of Systems: all noted and negative except for above Physical Exam Physical Exam: General- oriented x 3, not in distress, speaks in sentences with no effort or accessory muscle use Head- atraumatic Eyes- PERRL, EOMI, anicteric ENT- oropharynx clear Neck- supple, no JVD, no adenopathy, no thyromegaly; carotids +2/2, no bruits appreciated Lungs- clear to auscultation bilaterally, no rales/wheezes Heart- normal rate, regular rhythm; no murmur, no gallop, no rub appreciated Abdomen- normal bowel sounds, nondistended, soft, nontender, no masses or hepatosplenomegaly Extremities- no pretibial edema, no calf tenderness; peripheral pulses intact Neuro- alert, oriented x 3; CN 2-12 grossly intact; motor 5/5 bilaterally;sensation 100% on all extremities; no other gross focal neurologic deficits Skin- warm & dry Results & Data Results & Data ([facility]) Vital Signs (Past 12 Hours) Vital Signs Temp Pulse Pulse Pulse Resp BP Pulse Ox 03/12/22 15:38 36.6 C 53 L 20 103/62 96 03/12/22 12:00 36.6 C 58 L 18 125/70 97 03/12/22 08:00 65 03/12/22 07:35 36.7 C 64 20 132/80 97 all noted and reviewed including below
[2022-03-13 06:38] LABS: Partial Thromboplastin Ratio 2.5
[2022-03-13 07:13] LABS: Partial Thromboplastin Time 69.4 Seconds (21.0-31.0)
--- NOTE | 2022-03-13 07:39 | Electrocardiogram Report ---
Test Reason : Blood Pressure : / mmHG Vent. Rate : 064 BPM Atrial Rate : 064 BPM P-R Int : 186 ms QRS Dur : 084 ms QT Int : 426 ms P-R-T Axes : 049 -01 -37 degrees QTc Int : 439 ms Normal sinus rhythm Abnormal ECG When compared with ECG of 11-MAR-2022 13:31, T wave inversion now evident in Anterior leads Confirmed by Orlin Jha ([id number]) on 03/13/2022 7:39:33 AM Referred By: REFERRED SELF Confirmed By:Edgardo Jha
[2022-03-13] MEDS: MESALAMINE 800 MG TABCR PO SCH ×3 (08:00→20:13)
[2022-03-13] MEDS: METOPROLOL SUCC 50MG EXT REL TAB PO SCH (08:01)
[2022-03-13] MEDS: LOSARTAN/HCTZ 50/12.5MG TAB PO SCH (08:01)
[2022-03-13] MEDS: MERCAPTOPURINE 50 MG TAB PO SCH (08:01)
[2022-03-13] MEDS: PRAVASTATIN SOD 10 MG TAB PO SCH (08:01)
[2022-03-13] MEDS: ASPIRIN 81 MG ECTAB PO SCH (08:01)
[2022-03-13] MEDS: VERAPAMIL HCL 120 MG TABCR PO SCH (08:01)
[2022-03-13] MEDS: TAMSULOSIN HCL 0.4 MG CAP PO SCH ×2 (08:02→17:13)
[2022-03-13] MEDS: HEPARIN SODIUM/DEXTROSE 25,000 UNITS/500 ML BAG IV SCH ×2 (10:11→19:35)
--- NOTE | 2022-03-13 10:54 | Cardiology Progress Note ---
Date of Service March 13, 2022 Assessment & Plan (1) Crescendo angina: (2) Elevated troponin: (3) Hypertrophic cardiomyopathy: (4) Hypertension: (5) Sleep apnea: (6) Paroxysmal atrial fibrillation: Plan: Patient is a 72-year-old male with known hypertrophic cardiomyopathy but no prior history of ischemic heart disease who presents with signs and symptoms of crescendo angina/non-ST segment elevation myocardial infarction. Hemodynamically stable since admission and no current symptoms. Echocardiogram reflective of apical wall motion abnormality consistent with EKG 5 Recommendations: Continue current medical therapies including anticoagulation. Scheduled diagnostic coronary angiography Monday morning unless patient becomes unstable. IV hydration and n.p.o. after midnight orders placed Admission and Anticipated Discharge Date Admission Date: March 11, 2022 Subjective Patient was seen and examined, chart, medications, telemetry reviewed. No further chest pain or chest pressure since hospitalization. No arrhythmias on telemetry. No bleeding difficulties on anticoagulation. Review of Systems Review of Systems: All systems reviewed & are unremarkable except as noted in Subjective Physical Exam Constitutional: WD/WN, vitals as above Eyes: PERRL, conjunctivae normal, anicteric sclerae ENMT: external ear and nose normal, oropharynx normal Neck: trachea midline, no thyromegaly Respiratory: normal respiratory effort, lungs clear to auscultation Cardiovascular: Rate/Rhythm: regular rate and regular rhythm Heart Sounds: normal S1, normal S2 and + murmur (Grade 1/6 systolic murmur); no gallop Palpation: normal PMI Vessels: normal carotid upstroke and radial pulses present; no JVD and no carotid bruit Extremities: no edema Gastrointestinal (Abdomen): normal bowel sounds, soft, nontender, no hepatosplenomegaly Musculoskeletal: no cyanosis or clubbing, extremities motor strength 5/5 Skin: no rashes, warm and dry Neurologic: PERRL, EOMI, accommodation nl, no face palsy, no dysarthria Psychiatric: A+Ox3, euthymic affect Results & Data ([facility]) Vital Signs (Past 12 Hours) Vital Signs Temp Pulse Pulse Pulse Resp BP Pulse Ox 03/13/22 08:00 62 03/13/22 07:30 36.6 C 49 L 18 102/58 L 95 03/13/22 06:58 50 L 03/13/22 03:05 36.3 C L 52 L 20 114/69 95 03/13/22 01:12 51 L Laboratory Results Laboratory Results - last 24 hr 03/12/22 03/12/22 03/13/22 10:13 14:50 05:45 APTT 53.1 H* 69.4 H* PTT Ratio 1.9 2.5 Troponin I High Sens 1013.9 H*
--- NOTE | 2022-03-13 15:45 | Hospitalist Progress Note ---
Date of Service March 13, 2022 Assessment & Plan (1) Precordial chest pain: Plan: per admitting SVC notes with addendum: Exertional chest discomfort, relieved by rest - worsening over the past 1-2 weeks. History of HOCM with latent inducible LVOT obstruction, paroxysmal atrial fibrillation on chronic AC. Denies prior hx of CAD. - Admit to PCU - Serial troponin, repeat EKG in AM - Check ECHO - Consult cardiology - will make pt NPO at midnight in case procedure needed tomorrow - Spoke with Dr. Del Rosario - will hold Eliquis and start heparin gtt, standard dose, no bolus 03/13 chest pain free trop trending down continue Heparin IV for cardiac cath tomorrow (2) Elevated troponin: Plan: See plan for #1 (3) Hypertrophic cardiomyopathy: (4) Paroxysmal atrial fibrillation: (5) Sleep apnea: Plan: Continue CPAP (6) Hypertension: (7) Chronic anticoagulation: Plan: continue usual meds Plan: plan of care discussed with patient in detail and at length all questions answered he is understanding, agreeable, comfortable with the plan of care Admission and Anticipated Discharge Date Admission Date: March 11, 2022 Subjective ff up for chest pain, etc seen resting in bed, comfortable states he feels fine overall no chest pain since admission no dyspnea, palpitations, dizziness no other symptoms Review of Systems Review of Systems: all noted and negative except for above Physical Exam Physical Exam: General- oriented x 3, not in distress, speaks in sentences with no effort or accessory muscle use Eyes- anicteric Neck- no JVD Lungs- clear breath sounds bilaterally, no rales/wheezes Heart- normal rate, regular rhythm; no murmurs Abdomen- normal bowel sounds, nondistended, soft, nontender Extremities- no pretibial edema, no calf tenderness Neuro- alert, oriented x 3; no gross focal neurologic deficits Skin- warm & dry Results & Data Results & Data ([facility]) Vital Signs (Past 12 Hours) Vital Signs Temp Pulse Pulse Pulse Resp BP Pulse Ox 03/13/22 14:56 49 L 03/13/22 11:26 36.6 C 50 L 18 121/70 97 03/13/22 08:00 62 03/13/22 07:30 36.6 C 49 L 18 102/58 L 95 03/13/22 06:58 50 L all noted and reviewed including below
[2022-03-13 17:43] LABS: Partial Thromboplastin Ratio 1.9
[2022-03-13 17:48] LABS: Partial Thromboplastin Time 51.3 Seconds (21.0-31.0)
[2022-03-14] MEDS ORDERED: SODIUM CHLORIDE 0.9% 1000ML 1,000 ML IV SCH
[2022-03-14 07:40] LABS: Partial Thromboplastin Time 55.8 Seconds (21.0-31.0)
[2022-03-14] MEDS: HEPARIN SODIUM/DEXTROSE 25,000 UNITS/500 ML BAG IV SCH (08:11)
[2022-03-14] MEDS: MESALAMINE 800 MG TABCR PO SCH ×3 (09:12→20:15)
[2022-03-14] MEDS: PRAVASTATIN SOD 10 MG TAB PO SCH (09:13)
[2022-03-14] MEDS: TAMSULOSIN HCL 0.4 MG CAP PO SCH ×2 (09:13→16:31)
[2022-03-14] MEDS: MERCAPTOPURINE 50 MG TAB PO SCH (09:14)
[2022-03-14] MEDS: LOSARTAN/HCTZ 50/12.5MG TAB PO SCH (09:14)
[2022-03-14] MEDS: METOPROLOL SUCC 50MG EXT REL TAB PO SCH (09:15)
[2022-03-14] MEDS: VERAPAMIL HCL 120 MG TABCR PO SCH (09:16)
[2022-03-14] MEDS ORDERED: fentaNYL citrate 100 MCG/2 ML VIAL ONE (12:02)
[2022-03-14] MEDS ORDERED: NITROGLYCERIN/D5W 100MCG/ML 20ML SYR ONE (12:02)
[2022-03-14] MEDS ORDERED: HEPARIN (PORCINE) 1000 UNIT/ML 10 ML (CATH LAB USE ONLY) ONE ×2 (12:02→14:33)
[2022-03-14] MEDS ORDERED: MIDAZOLAM HCL 1 MG/ML 2ML VIAL ONE ×2 (12:02→13:45)
[2022-03-14] MEDS ORDERED: niCARdipine HCL INJ 2.5 MG/ML 10 ML AMP ONE (12:02)
--- NOTE | 2022-03-14 13:44 | Cardiac Catheterization ---
Date of Service March 14, 2022 Cardiac Cath Report Cardiac Cath Report Procedure: 1. coronary angiography 2. Left heart cath History: This is a 72-year-old male patient with a hypertrophic cardiomyopathy who presented with classic exertional angina and a non-STEMI. Procedure summary: After informed consent was obtained patient was brought to the cardiac catheterization lab where access was obtained using a retrograde Salinger technique from the right radial artery. Preformed 5 [place] diagnostic catheters were utilized for the coronary angiograms and left heart pressures. Following the procedure the patient underwent coronary intervention. ACC data: Start time 1305 p.m. End time 1320 5 PM Opening aortic pressure 82/53 LV pressure 99/14 Aortic closing pressure 101/62 Sedation 1 mg intravenous Versed IV fluid 59 cc normal saline Contrast 61 cc Visipaque Fluoroscopy time 3.5 minutes Radiation 1055 mGy DAP 97.79 Shell per centimeter squared Right dominant system AUC score 9 Coronary angiography: Selective injections of the left coronary artery revealed the left main trunk to be patent. There is a large ramus branch from the very proximal left circumflex artery. The left circumflex then continues on and gives off a medium sized second marginal branch and then a large third posterior lateral marginal branch. The left circumflex system is widely patent. The LAD gives off a large first diagonal and a large second diagonal before continuing on around the apex of the heart. In the midportion LAD there is an eccentric 50-60% stenoses with the remainder the LAD having minor coronary disease in the midsegment and widely patent distally. Injections of the right coronary artery reveal it to be occluded in the midsegment with DEBRA grade I flow distally. Summary: Subtotaled mid RCA as the culprit lesion. LAD has a 50-60% mid stenoses with the remainder the coronary anatomy being widely patent. Recommendations: Recommendations are for coronary intervention on the right coronary artery and FFR LAD
[2022-03-14] MEDS ORDERED: ADENOSINE IV SOLN 3 MG/ML 20 ML VIAL IV ONE (14:06)
[2022-03-14] MEDS ORDERED: CLOPIDOGREL BISULFATE 300 MG TAB ONE (15:02)
--- NOTE | 2022-03-14 15:31 | Post Anesthesia Assessment ---
Date of Service March 14, 2022 Post Sedation Assessment Vital Signs Temp Pulse Pulse Resp BP Pulse Ox 03/14/22 15:24 46 L 17 102/62 97 03/14/22 15:10 48 L 17 111/60 96 03/14/22 12:11 52 L 17 120/73 96 03/14/22 08:56 47 L 03/14/22 06:55 98.2 F 49 L 16 107/64 96 03/14/22 02:41 98.1 F 55 L 20 112/70 95 03/13/22 23:15 48 L 03/13/22 22:58 97.9 F 51 L 16 94/49 L 97 03/13/22 19:00 97.9 F 58 L 20 124/68 96 03/13/22 16:04 97.9 F 47 L 18 109/65 95 Recovery Score Activity: Moves 4 extremities Respiration: Deep Breath/Cough Circulation: +/-20% PreAnes Value Consciousness: Fully Awake Oxygen Saturation: > 92% On Room Air Post Anesthesia Score: 10 Discharge Sedation Level of Care: Fast Track Phase II Post Sedation Plan On clinical assessment, the patient appears to have tolerated the sedation without complications. Patient is recovering as anticipated. Patient will continue to be monitored by nursing and may be discharged when sedation discharge criteria are met per below protocol. Upon Completions of procedure up to 15 minutes continue every 5 minute vital signs and the P.A.R. score; then discharge to a Phase I or Fast Track to Phase II per the following guidelines: * Discharge Patient to appropriate Phase II area if PAR is 8 or greater or return to pre- procedure baseline. The post - procedure orders will be as directed. * If PAR score is less than 8 or not return to pre-procedure baseline then patient will follow Phase I monitoring till PAR is reached for Phase II. The Phase I may be done in procedure room or may call to secure a Phase I area. * If naloxone or flumazenil are used for reversal, hold in Phase I for continued monitoring from when last reversal dose was given for a minimum of 60 minutes or longer pending the nurse and/or physician discretion of patient condition before discharge to Phase II. Please call the Sedation Physician to re-evaluate and complete post-note for discharge to Phase II area. Do NOT discharge from procedure sedation or Phase 1 until post- sedation evaluation note is complete by procedure /sedation MD Sedation Discharge Instructions to be given to the patient at discharge to home.
--- NOTE | 2022-03-14 15:45 | Cardiac Catheterization ---
[facility] Data: Logistics Engineering Manager Cardiac Status Clinical evaluation leading to the procedure CAD Presenation: Non STEMI Diagnostic Physicians Name: Orlin Thomas MD Closure Device Recommendations: PCI without planned CABG Cardiac Cath Procedure Full Procedure Date March 14, 2022 Pre-Procedure Diagnosis Pre-Procedure Diagnosis: Non STEMI AUC Score AUC Score: 8 Post-Procedure Diagnosis Post-Procedure Diagnosis: Severe CAD Procedure(s) Performed Procedure(s) Performed: Coronary Angiography, Drug Eluting Stent, IVUS and Fractional Flow [place] Buggy Runner Orlin Thomas MD Pathology Specialist(s) Zia Estimated Blood Loss Estimated Blood Loss: 25 Medication(s) Medication(s): Fentanyl, Heparin, Lidocaine 1%, Nicardipine, Nitroglycerin and Versed Summary of Findings Indication: NSTEMI Access: 6 Fr right radial artery Catheters: AR-1, AL-1 guides Findings: For full details of patient's coronary angiography please see cath report dictated by Dr. Del Rosario. Briefly, patient found to have two-vessel coronary artery disease with a occluded mid RCA and intermediate mid LAD stenosis at bifurcation with D1. Initial decision to attempt PCI of mid RCA -- PCI -- Antithrombotic therapy: Heparin, clopidogrel Procedure: RCA cannulated with AR-1 guide Attempt made to cross mid RCA stenosis with maritime pilot 50 wire with aid of Rx balloon, telescope but unable to cross occlusion. RCA recannulated with AL-1 guide, multiple attempts made to cross mid RCA occlusion with whisper, maritime pilot 50 wires and Corsair catheter, telescope support. Mid RCA lesion appears to be more chronic occlusion with bridging right to right collaterals and RCA procedure aborted. Left main cannulated with an AL-1 guide Welder Apprentice Arc 50 wire navigated into distal LAD. FFR performed with ACIST catheter placed into mid LAD across stenosis Pd/Pa 0.90 FFR 0.72 Decision to proceed with PCI of mid LAD Pre-procedure flow DEBRA 3 [place] wire placed into first diagonal [place]ium of first diagonal dilated gently with 2.5 balloon Mid LAD dilated with 2.5 balloon [place] IVUS catheter placed to mid LAD to assess extent of disease and for vessel sizing prior to stent Pullback revealed diffuse calcified moderate to severe disease in mid LAD extending across takeoff of D1. Proximal LAD, left main without disease. Dilated proximal to mid LAD lesion stented with 3.5 x 30 mm Valent[place] drug-eluting stent Stent post-dilated with 4.5 noncompliant balloon IC vasodilators administered for spasm Repeat looking IVUS pullback revealed well apposed, well-expanded stent Post procedure DEBRA 3 flow in LAD, diagona. Stent well expanded with minimal residual stenosis and no apparent cardiac complications. Arterial Closure: TR band Summary: 1. Severe 2 vessel coronary artery disease -Chronic 100% mid RCA occlusion (unable to cross antegrade). 60 to 70% mid LAD at bifurcation of D1 (FFR 0.72). 2. Successful PCI of proximal to mid LAD with single drug-eluting stent (3.5 x 30 mm [place]; postdilated with 4.5 NC). Recommendations: To PCU for continued monitoring Loaded with clopidogrel 600 mg in Logistics Engineering Manager Triple therapy with aspirin, clopidogrel, apixaban while hospitalized. Long-term discharged on dual therapy with clopidogrel, apixaban for 1 year Continue statin, and ASCVD risk factor modification Consult cardiac Rehab Hemodynamics Rest Ao:: 101/62/78 Final Ao: 99/53/71 LV: -- Recommendations Recommendations: PCI without planned CABG Specimens Specimens: None Radiation Exposure (mGy) 5294 Contrast (mls) 110 Anesthesia Moderate 2380-7689 Procedural Complication(s) None Disposition PCU I attest to the content of the Intraoperative Record and any orders documented therein. Any exceptions are noted below. [facility] Card Cath Procedure Codes Cardiac Catheterization Procedure 1: Cardiovascular Cath Procedures: 73217 (Doppler) Pressure Wire Therapeutic Services & Ancillary Proc Procedure 2: Cardiovascular Tx and Anc Procedures: 96289 IV Ultrasound (Coronary or Graft) Moderate Sedation Procedure 1: Sedation/Anesthesia: 33082 Mod Sedation by the same physician; Ea [id number] Minutes Stenting Procedure 1: Cardiovascular Stent Procedures: 45008 Perc transcatheter placement of intracoronary stent(s), with ang PG Care Time/CCT Total # of Minutes Spent Total Time Spent with Patient: Total time spent is greater than 50% in coordination of care (as documented) at patient's floor/unit and/or counseling patient:
[2022-03-14] MEDS: ASPIRIN 81 MG ECTAB PO SCH (15:48)
--- NOTE | 2022-03-14 18:09 | Electrocardiogram Report ---
Test Reason : Blood Pressure : / mmHG Vent. Rate : 045 BPM Atrial Rate : 045 BPM P-R Int : 186 ms QRS Dur : 078 ms QT Int : 498 ms P-R-T Axes : 008 -04 -33 degrees QTc Int : 430 ms Sinus bradycardia T-wave changes concerning for ischemia Abnormal ECG When compared with ECG of 12-MAR-2022 06:06, No significant change was found Confirmed by Orlin Jha ([id number]) on 03/14/2022 6:09:17 PM Referred By: REFERRED SELF Confirmed By:Edgardo Jha
--- NOTE | 2022-03-14 19:18 | Hospitalist Progress Note ---
Date of Service March 14, 2022 Assessment & Plan (1) Precordial chest pain: Plan: per admitting S[facility] notes with addendum: Exertional chest discomfort, relieved by rest - worsening over the past 1-2 weeks. History of HOCM with latent inducible LVOT obstruction, paroxysmal atrial fibrillation on chronic AC. Denies prior hx of CAD. - Admit to PCU - Serial troponin, repeat EKG in AM - Check ECHO - Consult cardiology - will make pt NPO at midnight in case procedure needed tomorrow - Spoke with Dr. Del Rosario - will hold Eliquis and start heparin gtt, standard dose, no bolus 4/8 chest pain free trop trending down continue Heparin IV for cardiac cath (2) Elevated troponin: Plan: See plan for #1 (3) Hypertrophic cardiomyopathy: (4) Paroxysmal atrial fibrillation: (5) Sleep apnea: Plan: Continue CPAP (6) Hypertension: (7) Chronic anticoagulation: Plan: continue usual meds Plan: plan of care discussed with patient in detail and at length all questions answered he is understanding, agreeable, comfortable with the plan of care Admission and Anticipated Discharge Date Admission Date: March 13, 2022 Subjective ff up for chest pain, etc seen resting in bed, comfortable no chest pain no other new symptoms awaiting cardiac cath Review of Systems Review of Systems: all noted and negative except for above Physical Exam Physical Exam: all noted and negative except for above Results & Data Results & Data ([facility]) Vital Signs (Past 12 Hours) Vital Signs Temp Pulse Pulse Pulse Resp BP Pulse Ox 03/14/22 18:31 53 L 14 159/82 H 97 03/14/22 17:31 50 L 14 138/77 98 03/14/22 17:01 58 L 14 124/77 99 03/14/22 16:31 43 L 16 130/77 97 03/14/22 16:16 45 L 16 129/81 98 03/14/22 16:01 36.5 C 49 L 14 98 03/14/22 16:00 48 L 03/14/22 15:46 36.5 C 82 14 140/83 96 03/14/22 15:24 46 L 17 102/62 97 03/14/22 15:10 48 L 17 111/60 96 03/14/22 12:11 52 L 17 120/73 96 03/14/22 08:56 47 L all noted and reviewed including below
[2022-03-15] MEDS: TAMSULOSIN HCL 0.4 MG CAP PO SCH (08:16)
[2022-03-15] MEDS: MERCAPTOPURINE 50 MG TAB PO SCH (08:16)
[2022-03-15] MEDS: VERAPAMIL HCL 120 MG TABCR PO SCH (08:16)
[2022-03-15] MEDS: LOSARTAN/HCTZ 50/12.5MG TAB PO SCH (08:16)
[2022-03-15] MEDS: PRAVASTATIN SOD 10 MG TAB PO SCH (08:16)
[2022-03-15] MEDS: METOPROLOL SUCC 50MG EXT REL TAB PO SCH (08:17)
[2022-03-15] MEDS: ASPIRIN 81 MG ECTAB PO SCH (08:17)
[2022-03-15] MEDS: MESALAMINE 800 MG TABCR PO SCH (08:17)
[2022-03-15 08:19] VITALS: BP 110/63; TEMP 98.6; O2SAT 100
[2022-03-15] MEDS ORDERED: CLOPIDOGREL BISULFATE 75 MG TAB PO SCH (09:00)
--- NOTE | 2022-03-15 10:03 | Cardiology Progress Note ---
Date of Service March 15, 2022 Assessment & Plan (1) Crescendo angina: (2) Elevated troponin: (3) Hypertrophic cardiomyopathy: (4) Hypertension: (5) Sleep apnea: (6) Paroxysmal atrial fibrillation: Plan: The patient received a stent within the LAD yesterday. He has a chronically occluded right coronary artery that will be treated medically. The patient is on Eliquis which will be restarted today. The question is regarding dual antiplatelet therapy. The patient has a history of ulcerative colitis and is older than 65 both increase the risk of bleeding from triple therapy. Therefore, from a risk-benefit standpoint, I think the aspirin should be discon tinued and the patient should be sent home on Eliquis and Plavix. From a cardiology standpoint, patient can be discharged today and I will arrange follow-up as an outpatient through our clinic. Admission and Anticipated Discharge Date Admission Date: March 13, 2022 Subjective The patient had an uneventful night. All questions were answered. Cardiac rehab was consulted. Review of Systems Review of Systems: Review of Systems: See HPI for pertinent positives. All other 10 point review of systems are negative. Physical Exam Physical Exam: General: no acute distress and stated age Head: normocephalic, no masses, lesions, tenderness or abnormalities Eyes: conjunctiva are pink and non-injected, sclera clear Neck: supple, no adenopathy, no bruits, normal jugular venous pulse, no hepatojugular reflux Chest: normal shape and normal respiratory effort Lungs: clear to auscultation and percussion Cardiac Exam: - regular rate & rhythm, no murmurs gallops or rubs - normal S1, normal S2 Pulses: 2(+) throughout Abdomen: abdomen soft, non-tender, no abnormal masses and no hepatosplenomegaly Musculoskeletal: no gait disturbance, no joint inflammation, no deforming arthritis Extremities: no edema and no cyanosis Neuro: grossly normal exam Results & Data ([facility]) Vital Signs (Past 12 Hours) Vital Signs Temp Pulse Pulse Pulse Resp BP Pulse Ox 03/15/22 08:00 37.0 C 69 77 16 110/63 100 03/15/22 03:07 36.5 C 66 18 105/61 95 03/15/22 00:36 62 03/14/22 23:13 36.4 C L 57 L 17 117/71 100 Laboratory Results Laboratory Results - last 24 hr 03/14/22 03/14/22 14:30 14:54 Activ Coag Time Kaolin 237 H 279 H Medications Administered Current Inpatient Medications Acetaminophen (Acetaminophen 325 Mg Tab) 650 mg PO Q4H PRN PRN Reason: Pain or Fever Stop: 04/10/22 19:16 Apixaban (Apixaban 5 Mg Tablet) 5 mg PO BID [facility] Stop: 04/14/22 09:59 Aspirin (Aspirin 81 Mg Ectab) 81 mg PO DAILY [facility]IRIDIANA Stop: 04/11/22 08:59 Last Admin: 03/15/22 08:17 Dose: 81 mg Documented by: Clopidogrel Bisulfate (Clopidogrel Bisulfate 75 Mg Tab) 75 mg PO QAM [facility] Stop: 04/14/22 08:59 Last Admin: 03/15/22 08:17 Dose: 75 mg Documented by: HCTZ/Losartan Potassium (Losartan/Hctz 50/12.5mg Tab) 1 tab PO DAILY VIRIDIANA Stop: 04/11/22 08:59 Last Admin: 03/15/22 08:16 Dose: 1 tab Documented by: Mercaptopurine (Mercaptopurine 50 Mg Tab) 50 mg PO DAILY VIRIDIANA Stop: 04/11/22 08:59 Last Admin: 03/15/22 08:16 Dose: 50 mg Documented by: Mesalamine (Mesalamine 800 Mg Tabcr) 800 mg PO TID [facility] Stop: 04/10/22 20:59 Last Admin: 03/15/22 08:17 Dose: 800 mg Documented by: Metoprolol Succinate (Metoprolol Succ 50mg Ext Rel Tab) 100 mg PO DAILY VIRIDIANA Stop: 04/11/22 08:59 Last Admin: 03/15/22 08:17 Dose: 100 mg Documented by: Nitroglycerin (Nitroglycerin Sl 0.4 Mg/Tab Tab) 0.4 mg SL UD PRN PRN Reason: Chest Pain Stop: 04/10/22 19:16 Pravastatin Sodium (Pravastatin Sod 10 Mg Tab) 10 mg PO DAILY VIRID[facility]NA Stop: 04/11/22 08:59 Last Admin: 03/15/22 08:16 Dose: 10 mg Documented by: Tamsulosin HCl (Tamsulosin Hcl 0.4 Mg Cap) 0.4 mg PO BIDM [facility] Stop: 04/10/22 19:59 Last Admin: 03/15/22 08:16 Dose: 0.4 mg Documented by: Verapamil HCl (Verapamil Hcl 120 Mg Tabcr) 60 mg PO DAILY [facility]; Protocol Stop: 04/11/22 08:59 Last Admin: 03/15/22 08:16 Dose: 60 mg Documented by:
[2022-03-15] MEDS ORDERED: APIXABAN 5 MG TABLET PO SCH (10:30)
--- NOTE | 2022-03-15 11:33 | Hospitalist Progress Note ---
Date of Service March 15, 2022 Assessment & Plan (1) Precordial chest pain: Plan: per admitting C notes with addendum: Exertional chest discomfort, relieved by rest - worsening over the past 1-2 weeks. History of HOCM with latent inducible LVOT obstruction, paroxysmal atrial fibrillation on chronic AC. Denies prior hx of CAD. troponin: 800s to 1000s placed on heparin drip chest pain free while admitted 03/14: s/p cardiac cath by Dr. Thomas 1. Severe 2 vessel coronary artery disease -Chronic 100% mid RCA occlusion (unable to cross antegrade). 60 to 70% mid LAD at bifurcation of D1 (FFR 0.72). 2. Successful PCI of proximal to mid LAD with single drug-eluting stent (3.5 x 30 mm [place]; postdilated with 4.5 NC). Cardiology recommendations, discharge plan: Plavix + Eliquis (2) Elevated troponin: Plan: See plan for #1 (3) Hypertrophic cardiomyopathy: (4) Paroxysmal atrial fibrillation: (5) Sleep apnea: Plan: Continue CPAP (6) Hypertension: (7) Chronic anticoagulation: Plan: continue usual meds for other chronic conditions Plan: plan of care discussed with patient in detail and at length all questions answered he is understanding, agreeable, comfortable with the plan of care Admission and Anticipated Discharge Date Admission Date: March 13, 2022 Subjective ff up for NSTEMI, etc seen resting in bed, comfortable sitting up states he feels fine overall no chest pain, dizziness, SOB, palpitations no bleeding no other symptoms states he is ready and would like to be discharged today Review of Systems Review of Systems: all noted and negative except for above Physical Exam Physical Exam: General- oriented x 3, not in distress, speaks in sentences with no effort or accessory muscle use Eyes- anicteric Neck- no JVD Lungs- clear breath sounds bilaterally, no rales/wheezes Heart- normal rate, regular rhythm; no murmurs Abdomen- normal bowel sounds, nondistended, soft, nontender Extremities- no pretibial edema, no calf tenderness Neuro- alert, oriented x 3; no gross focal neurologic deficits Skin- warm & dry Results & Data Results & Data ([facility]) Vital Signs (Past 12 Hours) Vital Signs Temp Pulse Pulse Pulse Resp BP Pulse Ox 03/15/22 08:00 37.0 C 69 77 16 110/63 100 03/15/22 03:07 36.5 C 66 18 105/61 95 03/15/22 00:36 62 all noted and reviewed including below
[2022-03-15 12:22] VITALS: PULSE 66
--- NOTE | 2022-03-16 17:15 | Discharge Summary ---
Date of Service March 16, 2022 Admission HPI Per Admitting Provider This is a 72 y/o male with a PMH of HOCM with latent inducible LVOT obstruction, paroxysmal atrial fibrillation on chronic anticoagulation, HTN, hyperlipidemia, UC, sleep apnea on CPAP, prior squamous cell carcinoma of the penis, and recent prostate cancer s/p XRT who was referred to the ED today by his PCP due to increasing episodes of chest discomfort with exertion. 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 Starting last week, pt developed chest tightness with this exertion that resolved with rest. This week, the pt has noticed tightness and discomfort of increased intensity in the substernal area with associated racing heart. Yesterday's episode had associated SOB and mild diaphoresis and lasted around six hours so he contacted his certified coder today and was referred to the ED for additional evaluation. He reports that the episode today lasted around three hours but he is currently pain-free. This week he has also noticed POND with climbing stairs, which is new. Yesterday, he had some posterior neck discomfort associated with the episode. In the ED, his troponin was elevated and his EKG appeared changed from prior though no areas of ST segment elevation upon initial presentation. The ED provider spoke with cardiology who recommended pt be admitted for further evaluation. Admission Exam Per Admitting Provider Constitutional: well developed and well nourished; no acute distress Eyes: + anicteric sclerae Neck: trachea midline Respiratory: no respiratory distress and no labored breathing Auscultation: lungs clear to auscultation bilaterally; no rales, no rhonchi and no wheezes Cardiovascular: Rate/Rhythm: regular rate and regular rhythm Vessels: posterior tibial pulses present and radial pulses present; no carotid bruit Extremities: no edema no chest wall tenderness Gastrointestinal (Abdomen): Inspection/Auscultation: normal bowel sounds; abdomen not distended Percussion/Palpation: abdomen soft; abdomen nontender Musculoskeletal: Head/Neck/Chest: normocephalic, head atraumatic and neck supple Skin: no jaundice Neurologic: moves all extremities; no focal motor deficits and not confused Psychiatric: A+Ox3, euthymic affect Principal Diagnosis NON ST ELEVATION MYOCARDIAL INFARCTION S/P CARDIAC CATHETERIZATION Severe 2 vessel coronary artery disease -Chronic 100% mid RCA occlusion (unable to cross antegrade). 60 to 70% mid LAD at bifurcation of D1 (FFR 0.72). Successful PCI of proximal to mid LAD with single drug-eluting stent (3.5 x 30 mm [place]; postdilated with 4.5 NC). Discharge Exam General- oriented x 3, not in distress, speaks in sentences with no effort or accessory muscle use Eyes- anicteric Neck- no JVD Lungs- clear breath sounds bilaterally, no rales/wheezes Heart- normal rate, regular rhythm; no murmurs Abdomen- normal bowel sounds, nondistended, soft, nontender Extremities- no pretibial edema, no calf tenderness Neuro- alert, oriented x 3; no gross focal neurologic deficits Skin- warm & dry Discharge Data Allergies Allergy/AdvReac Type Severity Reaction Status Date / Time No Known Allergies Allergy Verified 03/11/22 15:10 Consultations 03/11/22 15:57 ED Decision to Admit Stat 03/11/22 19:17 Consult Cardiology Routine 03/14/22 15:47 Consult Cardiac Rehabilitation Routine 03/14/22 15:58 Consult Cardiac Rehabilitation Routine Procedures Performed Operation Date: 03/14/22 12:30 Actual Procedures s Cineradiography w/Routine Exam - Yair Del Rosario, DO p Cath, Left with Cors and Vent - Yair Del Rosario, DO p Drug Eluting Stent SGl Vessel - Alfred Thomas MD s POBA SGL Vessel - Alfred Thomas MD s IVUS Coronary Single Vessel - Alfred Thomas MD s Fraction Flow Pierz SGL Ves - Alfred Thomas MD Ordered Studies 03/14/22 12:19 CL Cath Imgs for PACS use only Routine 03/14/22 15:28 CL IVUS Coronary Single Vessel Routine Hospital Course (1) Precordial chest pain: per admitting SVC notes with addendum: Exertional chest discomfort, relieved by rest - worsening over the past 1-2 weeks. History of HOCM with latent inducible LVOT obstruction, paroxysmal atria l fibrillation on chronic AC. Denies prior hx of CAD. troponin: 800s to 1000s placed on heparin drip chest pain free while admitted 03/14: s/p cardiac cath by Dr. Thomas 1. Severe 2 vessel coronary artery disease -Chronic 100% mid RCA occlusion (unable to cross antegrade). 60 to 70% mid LAD at bifurcation of D1 (FFR 0.72). 2. Successful PCI of proximal to mid LAD with single drug-eluting stent (3.5 x 30 mm [place]; postdilated with 4.5 NC). Cardiology recommending Plavix + Eliquis only no aspirin, high risk for bleeding given age and history of ulcerative colitis (2) Elevated troponin: See plan for #1 (3) Hypertrophic cardiomyopathy: (4) Paroxysmal atrial fibrillation: (5) Sleep apnea: Continue CPAP (6) Hypertension: (7) Chronic anticoagulation: continue usual meds for other chronic conditions plan of care discussed with patient in detail and at length all questions answered he is understanding, agreeable, comfortable with the plan of care Total Time Total Time Spent Total Time Spent (In Minutes): >30 minutes Discharge Plan Discharge Items Patient Disposition: Home - Self-Care Reason For Visit: CHEST DISCOMFORT Discharge Diagnosis: NON ST ELEVATION MYOCARDIAL INFARCTION CORONARY ARTERY DISEASE S/P CARDIAC STENT PLACEMENT Condition on Discharge: Good Activity: Per Instructions section Activity Comment: INCREASE GRADUALLY TOLERATED, NO HEAXY EXERTION Lifting: Wait until after follow-up appointment Exercise/Sports: Wait until after follow-up appointment Driving/Machine Use: NO DRIVING UNTIL RE-EVALUATED AND ALLOWED BY PRIMARY CARE PHYSICIAN Non-emergency contact: Primary Care Provider Call non-emergency contact if: you have any medication questions, your symptoms worsen, your pain is not controlled, your pain is worsening, your pain is unusual for you, your pain is concerning for you and you have a fever Follow-up/Referrals: Shayan Roa MD [Physician] - (Date & Time 04/01/2022 8:00 AM Provider [facility] Jr., [facility] Edson Sheldon DO [Primary Care Provider] - 03/17/22 8:00 am (Date & Time 03/17/2022 8:00 AM Provider Edson Sheldon DO Department Family [address] ) Diet: Heart Healthy Addtl Attending Provider Instructions: PLEASE REFER TO YOUR NEW MEDICATION LIST AND FOLLOW INSTRUCTIONS CAREFULLY. YOUR NEW MEDICATION INCLUDE: PLAVIX- antiplatelet for treatment of coronary artery disease and prevent stent occlusion PLEASE CALL YOUR PRIMARY CARE PHYSICIAN OR RETURN TO THE ER IF WITH WORSENING OF SYMPTOMS, INCLUDING CHEST PAIN, SHORTNESS OF BREATH, PALPITATIONS, DIZZINESS, NAUSEA/VOMITING. FOLLOW UP WITH PRIMARY CARE PHYSICIAN IN 1 WEEK. FOLLOW UP WITH [facility] [employer]ICAL [employer]ER DR. ROA IN 1-2 WEEKS. Pending Studies at Discharge: No Stand-Alone Forms: My [facility], Work/School Release, Smoking Cessation Medications and DC Order Prescriptions: New clopidogrel 75 mg Tablet 75 mg PO QAM 90 Days Qty: 4 RF: 0 Continued tamsulosin 0.4 mg capsule 0.4 mg PO BIDWMEAL Qty: 60 RF: 5 Eliquis 5 mg tablet 5 mg PO BID RF: 0 metoprolol succinate 100 mg tablet extended release 24 hr 100 mg PO DAILY RF: 0 ascorbic acid (vitamin C) 500 mg tablet 500 mg PO DAILY RF: 0 cholecalciferol (vitamin D3) 50 mcg (2,000 unit) capsule 50 mcg PO DAILY RF: 0 pravastatin 10 mg tablet 10 mg PO DAILY RF: 0 mercaptopurine 50 mg tablet 50 mg PO DAILY RF: 0 losartan-hydrochlorothiazide [Hyzaar] 50-12.5 mg tablet 1 tab PO DAILY RF: 0 mesalamine 800 mg tablet,delayed release (DR/EC) 800 mg PO TID RF: 0 verapamil 120 mg tablet extended release 60 mg PO DAILY RF: 0 Discontinued aspirin 81 mg capsule 81 mg PO DAILY RF: 0 Discharge Orders: Discharge Order (Routine); Ordered 03/15/22 Ordered By: Jacob Guadalupe Admission Data Admit Date/Time: 03/13/22 17:37 Attending Provider: Jacob Guadalupe Admit Provider: Jacob Guadalupe Primary Care Provider: Edson Sheldon Other Providers: Prashant Walls ; Paulino Cole Other Interventions: Discharge Summary Assessment (RN) Last Done: 03/15/22 12:21
== END 2022-03-15 13:19 | disposition home or self-care (01) | DRG 247 ==
LOC: ED 13:16 → 2S 13:16 → SUATTDRO 16:38 → 2S 18:28